=== PATIENT | male | born 1985 | race Caucasian/White ===

== ENCOUNTER 2023-03-06 15:31 | Emergency (ER) | payer BC ==
[~2023-03-06] VITALS: Ht 177.8 cm; Wt 74.8 kg
[2023-03-06] MEDS ORDERED: ACETAMINOPHEN 325 MG TABLET PO ONE (16:00)
[2023-03-06] MEDS ORDERED: ACETAMINOPHEN ES 500 MG TABLET ONE (16:08)
[2023-03-06] MEDS ORDERED: TYL2T PO (17:01)
[2023-03-06 17:08] VITALS: BP 120/76; TEMP 98.4; O2SAT 95
== END 2023-03-06 17:08 | disposition home or self-care (01) ==
LOC: ER 15:52
DX: S06.0XAA Concussion with loss of consciousness status unknown, initial encounter (principal); J45.909 Unspecified asthma, uncomplicated; F32.A Depression, unspecified; W18.09XA Striking against other object with subsequent fall, initial encounter; Y93.89 Activity, other specified; Y92.89 Other specified places as the place of occurrence of the external cause; Y99.8 Other external cause status
CPT/HCPCS: 70450-TC